=== PATIENT | female | born 1960 | race Two or more races ===

== ENCOUNTER 2020-03-16 05:00 | Inpatient (IN) | payer OTHER ==
[~2020-03-16 05:00] MED LIST: HUMULIN 70100 UNIT/2; LEVOTHYROXINE25 MCG PO
[2020-03-17] MEDS ORDERED: METFORMIN HCL500 M4 (08:26)
[2020-03-17] MEDS ORDERED: FAMOTIDINE40 MG (08:26)
== END 2020-03-17 11:27 | disposition home or self-care (01) | DRG 419 ==
LOC: CIR.AMB 05:00 → SURG 10:47 → O/R 10:47 → SURG 11:07
PROVIDERS: ADMIT Specialist; ATTEND Specialist
PROC: 0FT44ZZ Resection of Gallbladder, Percutaneous Endoscopic Approach (ICD-10-PCS; principal; 2020-03-16 07:00)
DX: K80.10 Calculus of gallbladder with chronic cholecystitis without obstruction (principal); E13.9 Other specified diabetes mellitus without complications; Z79.4 Long term (current) use of insulin

== ENCOUNTER 2024-03-09 15:32 | Emergency (ER) | payer OTHER ==
[~2024-03-09] VITALS: Ht 165.1 cm; Wt 77.1 kg
[~2024-03-09 15:32] MED LIST changes: +FAMOTIDINE40 MG; +METFORMIN HCL500 M4
[2024-03-09] MEDS ORDERED: LEVOTHYROXINE25 MCG PO (16:27)
[2024-03-09] MEDS ORDERED: LANTUS SOL100 UNIT/1 SQ (16:27)
[2024-03-09] MEDS ORDERED: HUMALOG100 UNIT/1 (16:28)
[2024-03-09] MEDS ORDERED: FAMOtidine 10 MG/ML (4ML VIAL) IV ONE (17:00)
[2024-03-09] MEDS ORDERED: ONDANSETRON HCL 2 MG/ML VIAL IV ONE (17:00)
[2024-03-09] MEDS ORDERED: FAMOTIDINE/PF 20 MG/2 ML VIAL ONE (17:16)
[2024-03-09] MEDS ORDERED: ONDANSETRON HCL 2 MG/ML VIAL ONE (17:16)
[2024-03-09 18:22] LABS: HEMATOCRIT 43.5 % (36.0-45.00); HEMOGLOBIN 14.9 g/dL (12.0-15.00); MEAN CELL VOLUME 89.3 fL (80.00-100.00); MEAN CORPUSCULAR HEMOGLOBIN 30.7 pg (27.00-32.0); MEAN CORPUSCULAR HGB CONC 34.3 g/dl (32.0-36.0); RED BLOOD COUNT 4.87 M/uL (4.00-6.00); RED CELL DISTRIBUTION WIDTH 12.8 % (11.5-14.5)
[2024-03-09 18:33] LABS: INR 1.05; PARTIAL THROMBOPLASTIN TIME 24.1 SECONDS (22.0-34.0); PROTHROMBIN TIME 11.4 SECONDS (9.0-11.5)
[2024-03-09 18:43] LABS: ALBUMIN 4.6 gm/dL (3.4-5.0); BILIRUBIN TOTAL 2.49 mg/dL (0.3-1.2); CREATININE SERUM 1.04 mg/dL (0.55-1.02); GFR 53.52; GLOBULINA 3.8 G/DL (2.4-3.5); POTASSIUM 4.64 mEq/L (3.5-5.1); TOTAL PROTEIN 8.4 gm/dL (6.4-8.2)
[2024-03-09 19:00] LABS: PLATELET COUNT 218 K/uL (150-450)
[2024-03-09 19:34] LABS: URINE APPEARANCE Turbid; URINE BILIRRUBIN Small (NEGATIVE); URINE BLOOD Negative; URINE COLOR Orange; URINE KETONE 15 (NEGATIVE); URINE LEUKOCYTE Small; URINE NITRATE Negative; URINE PROTEIN 30 (NEGATIVE)
[2024-03-09 19:38] LABS: URINE BACTERIA 1261.8 uL (0.0-1933); URINE CAST 6.03 uL (0.0-1.40); URINE EPITHELIAL CELLS 145.3 uL (0.0-38.8); URINE RBC 18.4 uL (0.0-20.8); URINE WBC 79.4 uL (0.0-23.2)
[2024-03-09 19:45] LABS: URINE GLUCOSE 250 MG/DL (NEGATIVE)
[2024-03-09] MEDS ORDERED: PEPCID AC20 MG PO (21:24)
== END 2024-03-09 21:45 | disposition home or self-care (01) ==
LOC: ER 15:34
PROVIDERS: General Practice
DX: R10.13 Epigastric pain (principal); R55 Syncope and collapse; R10.9 Unspecified abdominal pain; E03.8 Other specified hypothyroidism; E11.9 Type 2 diabetes mellitus without complications; Z79.4 Long term (current) use of insulin; Z88.0 Allergy status to penicillin